=== PATIENT | female | born 1990 | race Two or more races ===

== ENCOUNTER 2022-12-10 10:27 | Observation (INO) | payer MEDICAID ==
[~2022-12-10] VITALS: Ht 165.1 cm; Wt 68.0 kg
[2022-12-10] MEDS ORDERED: PREN1TAB71 OR (10:35)
[2022-12-10] MEDS ORDERED: NIF10C PO (11:40)
[2022-12-10] MEDS: TERBUTALINE SULFATE 1 MG/ML 1ML VIAL SC SCH ×2 (11:49→12:16)
[2022-12-10] MEDS ORDERED: NIFEdipine 10 MG CAP PO ONE (12:00)
== END 2022-12-10 13:20 | disposition home or self-care (01) ==
LOC: LDRP 10:27 → UNDOADMOB 10:27 → LDRP 10:30
PROVIDERS: ADMIT Obstetrics & Gynecology; ATTEND Obstetrics & Gynecology
DX: O60.02 Preterm labor without delivery, second trimester (principal); O62.9 Abnormality of forces of labor, unspecified; O99.891 Other specified diseases and conditions complicating pregnancy; M54.9 Dorsalgia, unspecified; O26.892 Other specified pregnancy related conditions, second trimester; R10.2 Pelvic and perineal pain; R11.0 Nausea; R35.0 Frequency of micturition; Z3A.26 26 weeks gestation of pregnancy
CPT/HCPCS: 59025; 76815; 81002; 94760; 96372; G0378; J3105

== ENCOUNTER 2023-02-04 09:35 | Observation (INO) | payer MEDICAID ==
[~2023-02-04] VITALS: Ht 165.1 cm; Wt 61.7 kg
[~2023-02-04 09:35] MED LIST: CEPH250C PO; NIF10C PO; PREN1TAB71 OR
[2023-02-04] MEDS ORDERED: BETAMETHASONE ACET (30mg/5ml) 5ml Vial 6mg/ml IM ONE (10:15)
== END 2023-02-04 10:46 | disposition home or self-care (01) ==
LOC: LDRP 09:35 → UNDOADMOB 09:35 → LDRP 10:11 → UNDODISOB 10:46
PROVIDERS: ADMIT Obstetrics & Gynecology; ATTEND Obstetrics & Gynecology
DX: O60.03 Preterm labor without delivery, third trimester (principal); O69.5XX0 Labor and delivery complicated by vascular lesion of cord, not applicable or unspecified; O26.893 Other specified pregnancy related conditions, third trimester; H53.8 Other visual disturbances; Z3A.34 34 weeks gestation of pregnancy
CPT/HCPCS: 59025; 96372; G0378

== ENCOUNTER 2023-02-07 11:47 | Observation (INO) | payer MEDICAID | END 2023-02-07 15:02 | disposition home or self-care (01) | LOC: LDRP 11:47 → UNDOADMOB 11:47 → LDRP 11:59 | PROVIDERS: ADMIT Obstetrics & Gynecology; ATTEND Obstetrics & Gynecology | DX: O69.5XX0 Labor and delivery complicated by vascular lesion of cord, not applicable or unspecified (principal); O62.9 Abnormality of forces of labor, unspecified; Z3A.35 35 weeks gestation of pregnancy | CPT/HCPCS: 59025; 76817; 76818; 81002; 94760; G0378 ==